=== PATIENT | female | born 1965 | race Caucasian/White ===

== ENCOUNTER 2016-09-12 11:26 | Emergency (ER) | payer OTHER ==
[~2016-09-12] VITALS: Ht 167.6 cm; Wt 103.5 kg
[~2016-09-12 11:26] MED LIST: ADVAIR 250/501 DISK; ADVAIR HFA120 INHALA IH; ALPRAZOLAM ER0.5 MG PO; ALPRAZOLAM0.5 MG PO; AMITRIPTYLINE H50 MG PO; ATARAX,VISTARIL25 MG PO; AUGMENTIN875 MG PO; BACTROBAN OINTM22 GM TP; BENTYL20 MG PO; CARAFATE1 GM PO; CEPHALEXIN500 MG PO; CLINDAMYCIN HC300 MG PO; DARVOCET A5001 EACH PO; ELAVIL100 MG PO; ELAVIL50 MG PO; ENDOCET 5-3251 EACH PO; ERYTHROMYC1 APPLICAT BOTH EYES; ERYTHROMYCIN O3.5 GM BOTH EYES; FEOSOL325 MG PO; FLONASE16 G1 BOTH NARES; FLUOXETINE HCL20 MG PO; FUROSEMIDE20 MG PO; FUROSEMIDE40 MG PO; GABAPENTIN300 MG PO; HYDROCHLOROTHIA25 MG PO; HYDROXYZINE HCL25 MG PO; IRON325 M1 PO; K-DUR20 MEQ PO; KEFLEX500 MG PO; KLOR-CON M2020 MEQ PO; LASIX20 MG PO; LASIX40 MG PO; LISINOPRIL20 MG PO; LISINOPRIL40 MG PO; LODINE400 MG PO; LYRICA150 MG PO; LYRICA75 MG PO; MENOPAUSE SUPPO20 MG PO; MOBIC15 MG PO; MOBIC7.5 MG PO; MORPHINE SULFAT15 M1 PO; MORPHINE SULFAT15 MG PO; MORPHINE SULFAT30 M2 PO; MUCINEX600 MG PO; NAPROSYN500 MG PO; NICOTINE PATCH1 EAC2 TD; NORCO 5/3251 TABLET PO; OMEPRAZOLE20 MG PO; OXYCODONE HCL5 MG PO; OXYCODONE-APAP1 EAC6 PO; PERCOCET 5/31 TABLET PO; PREDNISONE50 MG PO; PRILOSEC20 MG PO; PRINIVIL20 MG; PROAIR HFA8.5 GM IH; PROTONIX40 MG PO; PROZAC20 MG PO; Proventil,Ventolin H IH; REFRESH TEARS15 ML BOTH EYES; SPIRIVA RESPIMAT4 GM IH; SPIRIVA1 INHALATI IH; SPIRONOLACTONE25 MG PO; TIZANIDINE HCL4 MG PO; TOPROL XL6.25 MG PO; Tylenol Regular Stre PO; VIBRAMYCIN100 MG PO; VICODIN 5-5001 EACH PO; VICODIN,LORT1 TABLET PO; XANAX0.5 MG PO; ZESTRIL,PRINIVI20 MG PO
[2016-09-12] MEDS ORDERED: DULOXETINE HCL30 MG PO (12:50)
[2016-09-12] MEDS ORDERED: BUSPAR10 MG PO (12:50)
[2016-09-12 13:06] LABS: INFLUENZA A VIRAL ANTIGEN NEGATIVE; INFLUENZA B VIRAL ANTIGEN NEGATIVE
[2016-09-12 14:40] VITALS: BP 130/88
== END 2016-09-12 14:40 | disposition home or self-care (01) ==
LOC: EME 11:26
PROVIDERS: Physician Assistant
DX: R13.10 Dysphagia, unspecified (principal)
CPT/HCPCS: 70360; 87502; 99281; 99284; J1100

== ENCOUNTER 2017-11-03 15:52 | Emergency (ER) | payer OTHER ==
[~2017-11-03] VITALS: Ht 167.6 cm; Wt 109.9 kg
[~2017-11-03 15:52] MED LIST changes: +BUSPAR10 MG PO; +DULOXETINE HCL30 MG PO
[2017-11-03 17:16] LABS: APPEARANCE SL.HAZY ((CLEAR)); BILIRUBIN NEGATIVE; BLOOD NEGATIVE; COLOR YELLOW ((YELLOW)); GLUCOSE (STRIP) NEGATIVE; KETONES NEGATIVE; LEUKOCYTES MODERATE; NITRITE NEGATIVE; PROTEIN (STRIP) 30; SPECIFIC GRAVITY 1.025 (1.000-1.030); UROBILINOGEN 0.2 MG/DL (0.2-1.0)
[2017-11-03 17:25] LABS: BACTERIA RARE /HPF; EPITHELIAL CELLS 1+ /HPF; HYALINE CASTS 0-5 /LPF; MUCUS TRACE /LPF; RED BLOOD CELLS 0-5 /HPF (0-5); UCUL ADDED? YES; WHITE BLOOD CELLS TNTC /HPF (0-5)
[2017-11-03] MEDS ORDERED: MOTRIN800 MG PO (17:57)
[2017-11-03] MEDS ORDERED: LIDODERM 5% P1 PATCH TD (17:57)
[2017-11-03] MEDS ORDERED: FLEXERIL10 MG PO (17:57)
[2017-11-03 18:36] VITALS: BP 151/83
== END 2017-11-03 18:41 | disposition home or self-care (01) ==
LOC: EME 15:52
PROVIDERS: Nurse Practitioner Family
DX: M54.41 Lumbago with sciatica, right side (principal); G89.29 Other chronic pain; M79.7 Fibromyalgia; K21.9 Gastro-esophageal reflux disease without esophagitis; J44.9 Chronic obstructive pulmonary disease, unspecified; I73.9 Peripheral vascular disease, unspecified; I10 Essential (primary) hypertension; G47.30 Sleep apnea, unspecified; G25.81 Restless legs syndrome; F41.9 Anxiety disorder, unspecified; F17.200 Nicotine dependence, unspecified, uncomplicated; Z90.49 Acquired absence of other specified parts of digestive tract; Z88.5 Allergy status to narcotic agent; Z88.2 Allergy status to sulfonamides
CPT/HCPCS: 72100; 81003; 87077; 87086; 87186; 99281; 99284; J1885